=== PATIENT | female | born 2000 | race Two or more races ===

== ENCOUNTER 2018-07-08 20:21 | Emergency (ER) | payer OTHER ==
[~2018-07-08] VITALS: Ht 152.4 cm; Wt 54.7 kg
--- NOTE | 2018-07-08 20:43 | NUR ---
PT IN BATHROOM FOR UA
--- NOTE | 2018-07-08 21:01 | NUR ---
PT HERE FOR VAGINAL DISCHARGE AND ITCHING. PT HAS HX OF HERPES AND TREATS IT WITH ACYCLOVIER CREAM. CICI. AT BEDSIDE. UA SENT TO LAB
[2018-07-08] MEDS ORDERED: HYDROcodone/APAP 5/325 TABLET ONE (21:09)
--- NOTE | 2018-07-08 21:14 | NUR ---
PT MEDICATED FOR PAIN. VSS. CALL LIGHT IN REACH
[2018-07-08 21:15] VITALS: BP 117/71
[2018-07-08 21:16] LABS: HCG UR SG 1.024 (1.003-1.030); MICROSCOPIC AUTO
[2018-07-08 21:24] LABS: CULTURE INDICATED? YES
[2018-07-08] MEDS ORDERED: HYDROcodone/APAP 5/325 TABLET PO ONE (21:30)
--- NOTE | 2018-07-08 21:37 | NUR ---
Patient given discharge instructions and they have confirmed that they understand the instructions. Patient ambulatory with steady gait.
== END 2018-07-08 21:43 | disposition home or self-care (01) ==
LOC: ED 20:40
DX: A60.04 Herpesviral vulvovaginitis (principal); N30.00 Acute cystitis without hematuria
CPT/HCPCS: 81001; 81025; 87077; 87086; 87186; 99283